=== PATIENT | male | born 1950 | race Caucasian/White ===

== ENCOUNTER 2018-07-08 01:12 | Observation (INO) | payer OTHER ==
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
[2018-07-08] MEDS ORDERED: HYDROmorphONE/DILAUDID 1 MG/ML INJ IVP PRN (03:04)
[2018-07-08] MEDS ORDERED: ONDANSETRON 4 MG/2 ML VIAL IVP PRN (03:04)
[2018-07-08] MEDS ORDERED: D5W 1/2 NS 1,000 ML IV SCH (03:15)
[2018-07-08 04:10] LABS: PLATELET COUNT 202 10^3/uL (150-400)
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
[2018-07-08] MEDS ORDERED: HYDROmorphone HCL 0.5 MG/0.5 ML SYR IVP PRN (05:00)
[2018-07-08 07:48] VITALS: BP 133/75
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
[2018-07-08] MEDS ORDERED: KETOROLAC 15 MG/1 ML SDV IVP ONE (08:33)
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
[2018-07-08] MEDS: BACITRACIN ZINC 14.2 GM OINTTUBE TP SCH ×2 (09:33→11:22)
[2018-07-08] MEDS ORDERED: ACETAMINOPHEN 325 MG TAB PO PRN (11:24)
[2018-07-08] MEDS ORDERED: oxyCODONE IR 5 MG TAB PO PRN (11:24)
--- NOTE | 2018-07-08 12:26 | ASMTLACE ---
LACE Length of stay for Answers: Less than 1 day current admission Acuity / Level of Answers: Yes Care: Did the patient have an inpatient admission? Comorbidities - select Answers: Other Notes: ED, hyperlipdemia all that apply # of Emergency department Answers: 1-2 visits in the last 6 months Score: 5 Date Signed: 07/08/2018 12:26 PM Electronically Signed By:Sis Burkett RN
--- NOTE | 2018-07-08 12:28 | ASMTCMCOM ---
CM Note CM Note Notes: Chart reviewed. Per oral surgery, patient requesting to return to his home of [place] for further medical treatment. No needs identified CM available to assist if needs arise. Plan: DC to home independently Date Signed: 07/08/2018 12:27 PM Electronically Signed By:Sis Burkett RN
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
== END 2018-07-08 13:14 | disposition home or self-care (01) ==
LOC: INTOOBSV 03:04 → F3N 04:10
PROVIDERS: ADMIT Surgery; ATTEND Surgery
PROC: 0HQ1XZZ Repair Face Skin, External Approach (ICD-10-PCS; principal; 2018-07-08)
DX: S01.81XA Laceration without foreign body of other part of head, initial encounter (principal); V18.0XXA Pedal cycle driver injured in noncollision transport accident in nontraffic accident, initial encounter; Y93.55 Activity, bike riding; S02.611A Fracture of condylar process of right mandible, initial encounter for closed fracture; S02.612A Fracture of condylar process of left mandible, initial encounter for closed fracture; S02.40CA Maxillary fracture, right side, initial encounter for closed fracture; S02.5XXA Fracture of tooth (traumatic), initial encounter for closed fracture
CPT/HCPCS: 12011; 70450; 70486; 72125; 97161; 97165; G0378; G0480; J1170; J1885